=== PATIENT | male | born 1980 | race Caucasian/White ===

== ENCOUNTER 2017-08-28 22:09 | Emergency (ER) | payer MEDICAID ==
[~2017-08-28] VITALS: Ht 182.9 cm; Wt 123.4 kg
[2017-08-28 22:18] VITALS: BP 136/90
--- NOTE | 2017-08-28 23:08 | NUR ---
Pt fell on Sunday, injured right hand, PMS intact, cap refill < 2 sec. Limited ROM, pain 06/04. Pt denies dizziness, n/v, CP, SOB, no other complaints, no distress noted.
--- NOTE | 2017-08-28 23:30 | NUR ---
Gave pt ice pack, per
== END 2017-08-29 00:03 | disposition home or self-care (01) ==
LOC: ER 22:18
DX: S62.201A Unspecified fracture of first metacarpal bone, right hand, initial encounter for closed fracture (principal); Z88.0 Allergy status to penicillin; W18.39XA Other fall on same level, initial encounter; Y93.61 Activity, american tackle football; Y92.89 Other specified places as the place of occurrence of the external cause; Y99.9 Unspecified external cause status
CPT/HCPCS: 29125; 73130; 99284; A4606; Q0162; Z7610